=== PATIENT | male | born 1945 | race African-American/Black ===

== ENCOUNTER 2018-03-11 10:06 | Emergency (ER) | payer OTHER, MEDICAID ==
[~2018-03-11] VITALS: Ht 182.9 cm; Wt 77.0 kg
[2018-03-11] MEDS ORDERED: BACL-141 PO (10:22)
[2018-03-11] MEDS ORDERED: ASPI-1159 PO (10:22)
[2018-03-11 12:44] VITALS: BP 138/85
== END 2018-03-11 12:46 | disposition home or self-care (01) ==
LOC: ER 10:06
DX: M79.89 Other specified soft tissue disorders (principal); I10 Essential (primary) hypertension; F17.200 Nicotine dependence, unspecified, uncomplicated; Z98.1 Arthrodesis status; Z96.649 Presence of unspecified artificial hip joint
CPT/HCPCS: 73130; 99284